=== PATIENT | male | born 1980 | race Caucasian/White ===

== ENCOUNTER → 2016-10-23 | Outpatient (CLI) | payer BC ==
[~2016-10-23] MED LIST: ALBU2.5V14 NEB; ASPI-482 PO; CONTRAST GIVEN MC PRN; GADOBUTROL 7.5 MMOL/7.5 ML VIAL INT ART ONE; IOHEXOL 300 MG/ML 50 ML VIAL. INT ART ONE; LIDOCAINE 1% Multi-Dose 20 ML VIAL. ID ONE; LOSA1TAB18 PO; METO100T2 PO
--- NOTE | 2016-10-23 16:12 | KCIC ---
MR arthrogram of the right shoulder Indication: Right shoulder pain. Surgery 1997. Increasing pain for the last 3 or 4 years. Technique: Intra-articular contrast injected into the glenohumeral joint and is reported separately. Routine 4 plane sequences were obtained, including ABER positioning. Findings: Acromioclavicular joint: Mildly degenerative. Mild undersurface mass effect. Rotator cuff: Mild thickening and signal compatible with tendinosis. Small intrasubstance defect within the supraspinatus tendon measures 4 mm diameter. This does not accumulate contrast. No surfacing tear or through and through rupture is identified of the rotator cuff. Subdeltoid bursa:No significant fluid or contrast accumulation. Articular cartilage: Cartilage thinning and irregularity at the glenoid, particularly inferiorly. Labrum: Tear of the posterosuperior labrum. Tear at the anteroinferior labrum. Biceps tendon: Intact Bones: No lesion or acute fracture. Soft tissue: No acute findings. Impression: 1. Posterosuperior labral tear. 2. Anteroinferior labral tear. 3. Inferior glenoid chondromalacia. 4. Rotator cuff tendinosis. Small intrasubstance T2 signal defect of supraspinatus tendon, without surface rupture or retraction. Electronically signed by: David Agrawal MD (10/23/2016 4:08 PM) [facility]
--- NOTE | 2016-10-23 16:45 | KCIC ---
PROCEDURE: Right shoulder injection using fluoroscopic guidance, prior to MR. HISTORY: Shoulder pain. Pain increasing for last 3 or 4 years. TECHNIQUE: The procedure was explained to the patient as were potential risks, including among others infection, bleeding or allergic reaction. All questions were answered. Informed written and verbal consent was obtained. The shoulder was prepped and draped in the usual sterile manner. Following administration of local anesthetic, a 22-gauge needle was advanced into the anterior shoulder. Following negative aspiration, 12 cc of a solution of 5cc Omnipaque-300 contrast, 5 cc 1% lidocaine, 10 cc normal saline, and 0.1 cc gadolinium was injected without difficulty. The needle was removed. There was good hemostasis at the injection site. The patient left in stable condition without immediate complication. The patient was given postprocedural instructions, and instructed to contact us or the ER if there are any complications. A single spot image is obtained. FLUOROSCOPY TIME:?40 seconds Electronically signed by: David Agrawal MD (10/23/2016 4:42 PM) [email or web address]
== END | disposition home or self-care (01) ==
LOC: KCIC 14:14
PROVIDERS: ATTEND Orthopaedic Surgery Sports Medicine
DX: S43.401A Unspecified sprain of right shoulder joint, initial encounter (principal); M94.211 Chondromalacia, right shoulder; X58.XXXA Exposure to other specified factors, initial encounter; Y93.89 Activity, other specified; Y92.89 Other specified places as the place of occurrence of the external cause; Y99.8 Other external cause status
CPT/HCPCS: 73040; 73222; A9585; Q9967

== ENCOUNTER → 2018-05-19 | Outpatient (CLI) | payer BC ==
[~2018-05-19] MED LIST changes: +0.9 % SODIUM CHLORIDE 10 ML DISP.SYRIN. ID ONE; -CONTRAST GIVEN MC PRN; -LOSA1TAB18 PO; +LOSA1TAB25 PO; -METO100T2 PO; +METO100T7 PO
--- NOTE | 2018-05-19 15:41 | KCIC ---
EXAM: MRI RIGHT HIP ARTHROGRAM DATE: 05/19/2018 2:00 PM CLINICAL INDICATION: Right hip pain. Pain with twisting. Popping of the right hip. COMPARISON: None. TECHNIQUE: Multiplanar, multisequence MR imaging of the right hip was performed following administration of intra-articular right hip gadolinium contrast. Please see separate procedure report for full details. FINDINGS: Fluid: Iatrogenic right hip joint distention with gadolinium contrast, without synovial nodularity or intra-articular loose body. Negative fluid distention of the greater trochanteric bursa. Ligaments: Ligamentum teres is intact without nodularity or thickening. Morphology: Normal proximal femoral angle, 134 degrees. Normal acetabular anteversion. The alpha angle is increased measuring approximately 70 degrees given prominent osteophytes at the right femoral head/neck junction. Articular cartilage: Full-thickness cartilage defect is seen anteriorly within the right hip joint space, best seen (series 5 image 14). In addition there is full-thickness chondral thinning superiorly with subchondral edema (series 6 image 14). Acetabular labrum: Posterior superior linear labral signal is seen with small focus of contrast extending through the labral-chondral junction with small associated subchondral cyst posterior superiorly. Periarticular tendons: Regional tendinous attachments are intact including hamstring, iliopsoas and gluteus medius tendons. Bone marrow: Otherwise normal marrow signal. No fracture or AVN. Visceral pelvis: Incomplete survey of marginal visceral structures of the pelvis. Grossly normal without mass lesion or free intraperitoneal fluid. Negative large pelvic wall adenopathy. IMPRESSION: 1. Right hip joint osteoarthritis with regions of full-thickness chondral effacement and subchondral edema anteriorly and posterosuperiorly. Marginal femoral head/neck junction osteophytes are seen resulting in increased alpha angle which can be seen with acquired cam-type CAROL. 2. Partial-thickness posterior-superior labral tear/partial detachment or sublabral sulcus. Electronically signed by: Carl Martinez MD (05/19/2018 3:38 PM) [facility] [id number]
--- NOTE | 2018-05-19 17:29 | KCIC ---
EXAM: Right hip joint injection WITH Fluoroscopic guidance DATE: 05/19/2018 1:00 PM CLINICAL HISTORY: Right hip pain and clicking. COMPARISON: None pertinent TECHNIQUE: The patient was informed of the indications and alternatives for this procedure as well as risks and benefits. No immediate contraindication identified. The patient provided informed, written consent. Laterality was confirmed by the entire team following a time out. Following initial right hip joint localization, a suitable area was sterilely prepped and draped. Local anesthesia was administered with 1% xylocaine. With intermittent fluoroscopic observation, a 22-gauge spinal needle was advanced into the right hip joint sheath/capsule with infusion 14 cc solution containing 10 cc saline, 5 cc lidocaine 1%, 5 cc Isovue and 0.1 cc gadolinium. Intra-articular positioning was confirmed with fluoroscopy. Hemostasis with local pressure. Local clinical exam negative for immediate complication. Patient informed re local potential signs or symptoms that may indicate need to return to ER/Ordering physician for further evaluation. Patient informed re precautionary measures after intra-synovial injection of anesthetic. Patient expressed understanding. Performing Physicians: Dr. Tuan Martinez Blood Loss: 0 cc Pre-procedural Pain Scale: 1-2 Post-procedural Pain Scale: 1-2 Total Fluoroscopy time: 12 seconds Total spot images taken: 0 Total fluoroscopic screen save images: 1 IMPRESSION: Successful intra-synovial injection right hip joint with gadolinium contrast for MRI arthrogram per clinical request. Electronically signed by: Carl Martinez MD (05/19/2018 5:26 PM) [email or web address]
== END | disposition home or self-care (01) ==
LOC: KCIC 12:43
PROVIDERS: ATTEND Orthopaedic Surgery Adult Reconstructive Orthopaedic Surgery
DX: S73.191A Other sprain of right hip, initial encounter (principal); M16.11 Unilateral primary osteoarthritis, right hip; Z88.5 Allergy status to narcotic agent; Z88.8 Allergy status to other drugs, medicaments and biological substances; X50.1XXA Overexertion from prolonged static or awkward postures, initial encounter; Y93.89 Activity, other specified; Y92.89 Other specified places as the place of occurrence of the external cause; Y99.8 Other external cause status
CPT/HCPCS: 27095; 73525; 73722; A9585; Q9967